=== PATIENT | male | born 1950 | race Two or more races ===

== ENCOUNTER 2016-09-08 18:16 | Inpatient (IN) | payer MEDICARE ==
[~2016-09-08] VITALS: Ht 167.6 cm; Wt 65.5 kg
[2016-09-08 20:04] LABS: HEMATOCRIT. 40.8 % (42.0-52.0); HEMOGLOBIN. 13.9 g/dL (14.0-18.0); MEAN CORPUSCULAR HEMOGLOBIN 30.7 pg (28.0-32.0); MEAN CORPUSCULAR VOLUME 90.3 fL (80.0-94.0); MEAN PLATELET VOLUME 9.8 fl (7.4-10.4); PLATELET 111 x1000/uL (130-400); RED BLOOD CELL COUNT 4.52 mill/uL (4.7-6.1); RED CELL DISTRIBUTION WIDTH 13.2 % (11.6-14.6)
[2016-09-08 20:13] LABS: CARBON DIOXIDE 21 mEq/L (21-32); CHLORIDE 90 mEq/L (98-107)
[2016-09-08] MEDS ORDERED: KETOROLAC 30MG/ML VIAL IV ONE (20:15)
[2016-09-08 20:16] LABS: TROPONIN I < 0.02 ng/mL (0.00-0.04)
[2016-09-08 20:17] LABS: D-DIMER 6.75 mg/L FEU (<0.50); INR 1.1; PROTHROMBIN TIME 11.3 sec
[2016-09-08] MEDS ORDERED: SODIUM CHLORIDE 0.9% 1,000 ML IV ONE ×2 (20:30→21:00)
[2016-09-08 20:35] LABS: CREATINE KINASE 413 IU/L (39-308)
[2016-09-08 20:39] LABS: PLATELET ESTIMATE DECREASED
[2016-09-08] MEDS ORDERED: MORPHINE SULFATE 4 MG/ML CPJ (NOT FOR IM USE) IV ONE (20:45)
[2016-09-08] MEDS ORDERED: ENOXAPARIN 80MG/0.8ML SYR SUBCUT ONE (20:45)
[2016-09-08] MEDS ORDERED: PIPERACILLIN/TAZOBACTAM 3.375GM/50ML PREMIX IV ONE (21:45)
[2016-09-08] MEDS ORDERED: VANCOMYCIN 1 G PREMIX 200 ML IV SCH (21:45)
[2016-09-08] MEDS ORDERED: PIPERACILLIN/TAZ 3.375G PREMIX 50 ML IV NR (21:47)
[2016-09-08] MEDS ORDERED: MORPHINE SULFATE 2 MG/ML CPJ (NOT FOR IM USE) IV ONE (23:15)
[2016-09-09] VITALS (12 sets, daily range): BP systolic 85–107; BP diastolic 55–77
[2016-09-09 00:55] LABS: CLARITY URINE TURBID (CLEAR); COLOR URINE YELLOW (YELLOW)
[2016-09-09 00:56] LABS: GLUCOSE URINE 3+ (NEGATIVE); PROTEIN URINE 2+ (NEGATIVE); SPECIFIC GRAVITY URINE 1.026 (1.005-1.030)
[2016-09-09 00:57] LABS: KETONES URINE NEGATIVE (NEGATIVE); LEUKOCYTE ESTERASE URINE NEGATIVE (NEGATIVE); NITRITE URINE NEGATIVE (NEGATIVE); OCCULT BLOOD URINE 3+ (NEGATIVE)
[2016-09-09] MEDS ORDERED: ACETAMINOPHEN 325MG TABLET PO PRN (03:30)
[2016-09-09] MEDS ORDERED: DOCUSATE SODIUM 100MG CAPSULE PO PRN (03:30)
[2016-09-09] MEDS ORDERED: IPRATROPIUM/ALBUTEROL 0.5-3(2.5)MG/3ML NEB INH PRN (03:30)
[2016-09-09] MEDS ORDERED: GUAIFENESIN 200MG/10ML SUGAR FREE UDC PO PRN (03:30)
[2016-09-09] MEDS ORDERED: LEVOFLOXACIN 500MG PREMIX 100 ML IV SCH ×2 (03:30→04:30)
[2016-09-09] MEDS ORDERED: LISI2.5T47 PO (03:42)
[2016-09-09] MEDS ORDERED: METF500T4 PO (03:42)
[2016-09-09] MEDS ORDERED: GLYB2.5T4 PO (03:42)
[2016-09-09] MEDS: SODIUM CHLORIDE 0.9% 1,000 ML IV SCH ×2 (04:15→18:00)
[2016-09-09] MEDS ORDERED: DEXTROSE 50% WATER 50ML SYRINGE IV PRN (05:00)
[2016-09-09] MEDS: HYDROCODONE/ACETAMINOPHEN 5/325MG TABLET PO PRN ×2 (05:07→23:46)
[2016-09-09] MEDS ORDERED: ENOXAPARIN 40MG/0.4ML SYR SUBCUT SCH (06:00)
[2016-09-09] MEDS ORDERED: PNEUMOCOCCAL 23-VAL P-SAC VAC 0.5 ML IM ONE (08:00)
[2016-09-09] MEDS: BLOOD SUGAR DIAGNOSTIC STRIP TEST SCH ×4 (08:20→20:53)
[2016-09-09] MEDS: ASPIRIN 81MG EC TABLET PO SCH (08:26)
[2016-09-09] MEDS: INSULIN LISPRO 100 UNITS/ML SUBCUT SCH ×4 (08:31→21:09)
[2016-09-09] MEDS ORDERED: METFORMIN HCL 500MG TABLET PO SCH (09:30)
[2016-09-09] MEDS: GLYBURIDE 2.5MG TABLET PO SCH (11:49)
[2016-09-09 12:56] LABS: HEMOGLOBIN. 12.7 g/dL (14.0-18.0); MEAN CORPUSCULAR HEMOGLOBIN 30.3 pg (28.0-32.0); MEAN CORPUSCULAR VOLUME 90.5 fL (80.0-94.0); MEAN PLATELET VOLUME 10.6 fl (7.4-10.4); PLATELET 105 x1000/uL (130-400); RED CELL DISTRIBUTION WIDTH 13.5 % (11.6-14.6)
[2016-09-09 13:57] LABS: PLATELET ESTIMATE DECREASED
[2016-09-09 16:05] LABS: HEPATITIS B SURFACE ANTIGEN NEGATIVE
[2016-09-09 16:33] LABS: HEPATITIS B CORE AB IGM NEGATIVE
[2016-09-09 16:35] LABS: HEPATITIS A AB IGM NEGATIVE (NEGATIVE)
[2016-09-09] MEDS: ONDANSETRON HCL 4MG/2ML VIAL IV PRN (19:02)
[2016-09-09] MEDS: ENOXAPARIN 30MG/0.3ML SYR SUBCUT SCH (21:15)
[2016-09-10] VITALS (12 sets, daily range): BP systolic 88–137; BP diastolic 53–77
[2016-09-10] MEDS ORDERED: LEVOFLOXACIN 250MG PREMIX 50 ML IV SCH (04:30)
[2016-09-10 07:13] LABS: HEMATOCRIT. 32.2 % (42.0-52.0); HEMOGLOBIN. 10.9 g/dL (14.0-18.0); MEAN CORPUSCULAR HEMOGLOBIN 30.5 pg (28.0-32.0); MEAN CORPUSCULAR VOLUME 90.4 fL (80.0-94.0); MEAN PLATELET VOLUME 10.6 fl (7.4-10.4); PLATELET 106 x1000/uL (130-400); RED BLOOD CELL COUNT 3.56 mill/uL (4.7-6.1); RED CELL DISTRIBUTION WIDTH 13.4 % (11.6-14.6)
[2016-09-10 07:44] LABS: CARBON DIOXIDE 18 mEq/L (21-32); CHLORIDE 93 mEq/L (98-107)
[2016-09-10] MEDS: ASPIRIN 81MG EC TABLET PO SCH (08:14)
[2016-09-10] MEDS: BLOOD SUGAR DIAGNOSTIC STRIP TEST SCH ×4 (08:14→20:58)
[2016-09-10] MEDS: GLYBURIDE 2.5MG TABLET PO SCH (08:18)
[2016-09-10] MEDS: SODIUM CHLORIDE 0.9% 1,000 ML IV SCH ×2 (08:20→22:01)
[2016-09-10] MEDS: INSULIN LISPRO 100 UNITS/ML SUBCUT SCH ×4 (08:35→20:59)
[2016-09-10] MEDS ORDERED: LISINOPRIL 2.5MG TABLET PO SCH (09:00)
[2016-09-10 09:21] LABS: PLATELET ESTIMATE DECREAS
[2016-09-10] MEDS: COLCHICINE 0.6MG TABLET PO SCH (12:53)
[2016-09-10] MEDS ORDERED: CEFTRIAXONE 2 G PREMIX 50 ML IV SCH (16:00)
[2016-09-10 16:52] LABS: CREATINE KINASE 448 IU/L (39-308)
[2016-09-10] MEDS: HYDROCODONE/ACETAMINOPHEN 5/325MG TABLET PO PRN (18:25)
[2016-09-10] MEDS: ENOXAPARIN 30MG/0.3ML SYR SUBCUT SCH (21:01)
[2016-09-11] VITALS (12 sets, daily range): BP systolic 122–156; BP diastolic 49–82
[2016-09-11] MEDS: SODIUM CHLORIDE 0.9% 1,000 ML IV SCH ×2 (05:04→12:12)
[2016-09-11] MEDS: HYDROCODONE/ACETAMINOPHEN 5/325MG TABLET PO PRN (05:11)
[2016-09-11] MEDS: INSULIN LISPRO 100 UNITS/ML SUBCUT SCH ×4 (08:00→21:00)
[2016-09-11] MEDS: BLOOD SUGAR DIAGNOSTIC STRIP TEST SCH ×4 (08:10→21:25)
[2016-09-11] MEDS: GLYBURIDE 2.5MG TABLET PO SCH (08:12)
[2016-09-11] MEDS: ASPIRIN 81MG EC TABLET PO SCH (08:12)
[2016-09-11] MEDS: SULFASALAZINE 500MG TABLET PO SCH ×2 (08:12→17:13)
[2016-09-11] MEDS: COLCHICINE 0.6MG TABLET PO SCH (08:12)
[2016-09-11] MEDS: ALLOPURINOL 100 MG TABLET PO SCH (08:12)
[2016-09-11 08:51] LABS: HEMATOCRIT. 30.3 % (42.0-52.0); HEMOGLOBIN. 10.1 g/dL (14.0-18.0); MEAN CORPUSCULAR HEMOGLOBIN 30.3 pg (28.0-32.0); MEAN CORPUSCULAR VOLUME 90.7 fL (80.0-94.0); MEAN PLATELET VOLUME 9.9 fl (7.4-10.4); PLATELET 113 x1000/uL (130-400); RED BLOOD CELL COUNT 3.34 mill/uL (4.7-6.1); RED CELL DISTRIBUTION WIDTH 13.9 % (11.6-14.6)
[2016-09-11 10:17] LABS: PLATELET ESTIMATE SLIGHTLY DECREASED
[2016-09-11] MEDS ORDERED: FUROSEMIDE 20MG/2ML VIAL IVP NR (12:45)
[2016-09-11] MEDS: SODIUM BICARBONATE 150 MEQ in DEXTROSE 5% WATER 1,000 ML IV SCH (17:13)
[2016-09-11] MEDS: CEFTRIAXONE 2 G in DEXTROSE 5% WATER 50 ML IV SCH (17:13)
[2016-09-11] MEDS: ENOXAPARIN 30MG/0.3ML SYR SUBCUT SCH (21:26)
[2016-09-12] VITALS (12 sets, daily range): BP systolic 122–152; BP diastolic 63–81
[2016-09-12 05:17] LABS: HEMATOCRIT. 29.9 % (42.0-52.0); HEMOGLOBIN. 10.1 g/dL (14.0-18.0); MEAN CORPUSCULAR HEMOGLOBIN 30.3 pg (28.0-32.0); MEAN CORPUSCULAR VOLUME 89.8 fL (80.0-94.0); MEAN PLATELET VOLUME 10.1 fl (7.4-10.4); PLATELET 116 x1000/uL (130-400); RED BLOOD CELL COUNT 3.33 mill/uL (4.7-6.1); RED CELL DISTRIBUTION WIDTH 14.2 % (11.6-14.6)
[2016-09-12] MEDS: HYDROCODONE/ACETAMINOPHEN 5/325MG TABLET PO PRN (05:49)
[2016-09-12 07:58] LABS: BG BASE EXCESS -3.2 mmol/L (-2.0-2.0); BG CARBOXYHEMOGLOBIN 0.2 % (0.5-1.5); BG DEOXYHEMOGLOBIN 6.4 % (0.0-5.0); BG FRACTION INSPIRED OXYGEN 21; BG HCO3 ACT 20.4 mmol/L (22.0-26.0); BG METHEMOGLOBIN 0.1 % (0.0-1.5); BG OXYGEN SATURATION 93.6 % (92.0-98.5); BG OXYHEMOGLOBIN 93.3 % (94.0-97.0); BG PCO2 31.5 mmHg (35.0-45.0); BG PH 7.429 (7.350-7.450); BG SAMPLE SITE RIGHT BRACHIAL; BG TOTAL HEMOGLOBIN 10.3 g/dL (12.0-18.0); BG VENT MODE ROOM AIR
[2016-09-12] MEDS: BLOOD SUGAR DIAGNOSTIC STRIP TEST SCH ×4 (08:16→21:02)
[2016-09-12] MEDS: GLYBURIDE 2.5MG TABLET PO SCH (08:20)
[2016-09-12] MEDS: ASPIRIN 81MG EC TABLET PO SCH (08:20)
[2016-09-12] MEDS: ALLOPURINOL 100 MG TABLET PO SCH (08:20)
[2016-09-12] MEDS: COLCHICINE 0.6MG TABLET PO SCH (08:20)
[2016-09-12] MEDS: SULFASALAZINE 500MG TABLET PO SCH ×2 (08:20→17:33)
[2016-09-12] MEDS: INSULIN LISPRO 100 UNITS/ML SUBCUT SCH ×4 (08:26→21:10)
[2016-09-12 09:28] LABS: PLATELET ESTIMATE SLIGHTLY DECREASED
[2016-09-12] MEDS: SODIUM BICARBONATE 150 MEQ in DEXTROSE 5% WATER 1,000 ML IV SCH (09:38)
[2016-09-12] MEDS: ONDANSETRON HCL 4MG/2ML VIAL IV PRN (15:38)
[2016-09-12] MEDS: CEFTRIAXONE 2 G in DEXTROSE 5% WATER 50 ML IV SCH (17:34)
[2016-09-12] MEDS: ENOXAPARIN 30MG/0.3ML SYR SUBCUT SCH (20:57)
[2016-09-13] VITALS (12 sets, daily range): BP systolic 126–175; BP diastolic 38–105
[2016-09-13] MEDS: SODIUM BICARBONATE 150 MEQ in DEXTROSE 5% WATER 1,000 ML IV SCH (00:11)
[2016-09-13] MEDS: HYDROCODONE/ACETAMINOPHEN 5/325MG TABLET PO PRN ×2 (00:20→13:24)
[2016-09-13 06:46] LABS: HEMATOCRIT. 30.6 % (42.0-52.0); HEMOGLOBIN. 10.5 g/dL (14.0-18.0); MEAN CORPUSCULAR HEMOGLOBIN 30.5 pg (28.0-32.0); MEAN CORPUSCULAR VOLUME 88.6 fL (80.0-94.0); MEAN PLATELET VOLUME 9.4 fl (7.4-10.4); PLATELET 136 x1000/uL (130-400); RED BLOOD CELL COUNT 3.45 mill/uL (4.7-6.1); RED CELL DISTRIBUTION WIDTH 13.9 % (11.6-14.6)
[2016-09-13 06:57] LABS: CARBON DIOXIDE 25 mEq/L (21-32); CHLORIDE 94 mEq/L (98-107)
[2016-09-13] MEDS: BLOOD SUGAR DIAGNOSTIC STRIP TEST SCH ×4 (08:09→20:51)
[2016-09-13] MEDS: COLCHICINE 0.6MG TABLET PO SCH (08:42)
[2016-09-13] MEDS: SULFASALAZINE 500MG TABLET PO SCH ×2 (08:42→17:35)
[2016-09-13] MEDS: GLYBURIDE 2.5MG TABLET PO SCH (08:42)
[2016-09-13] MEDS: ASPIRIN 81MG EC TABLET PO SCH (08:43)
[2016-09-13] MEDS: ALLOPURINOL 100 MG TABLET PO SCH (08:43)
[2016-09-13] MEDS: INSULIN LISPRO 100 UNITS/ML SUBCUT SCH ×4 (08:44→20:59)
[2016-09-13] MEDS: SODIUM CHLORIDE 0.9% 1,000 ML IV SCH ×2 (10:18→23:57)
[2016-09-13] MEDS: ONDANSETRON HCL 4MG/2ML VIAL IV PRN (11:28)
[2016-09-13 14:13] LABS: PLATELET ESTIMATE NORMAL
[2016-09-13] MEDS: CEFTRIAXONE 2 G in DEXTROSE 5% WATER 50 ML IV SCH (17:34)
[2016-09-13] MEDS: CLONIDINE 0.1MG TABLET PO PRN (20:13)
[2016-09-13] MEDS: ENOXAPARIN 30MG/0.3ML SYR SUBCUT SCH (21:01)
[2016-09-14] VITALS (8 sets, daily range): BP systolic 146–178; BP diastolic 74–91
[2016-09-14 06:38] LABS: HEMATOCRIT. 33.6 % (42.0-52.0); HEMOGLOBIN. 11.4 g/dL (14.0-18.0); MEAN CORPUSCULAR HEMOGLOBIN 30.1 pg (28.0-32.0); MEAN CORPUSCULAR VOLUME 89.1 fL (80.0-94.0); MEAN PLATELET VOLUME 9.5 fl (7.4-10.4); PLATELET 177 x1000/uL (130-400); RED BLOOD CELL COUNT 3.78 mill/uL (4.7-6.1)
[2016-09-14 07:47] LABS: PHOSPHORUS 5.5 mg/dL (2.5-4.9)
[2016-09-14] MEDS: INSULIN LISPRO 100 UNITS/ML SUBCUT SCH ×4 (08:00→21:18)
[2016-09-14] MEDS: SULFASALAZINE 500MG TABLET PO SCH ×2 (08:00→17:44)
[2016-09-14] MEDS: BLOOD SUGAR DIAGNOSTIC STRIP TEST SCH ×4 (08:08→21:00)
[2016-09-14] MEDS: COLCHICINE 0.6MG TABLET PO SCH (08:11)
[2016-09-14] MEDS: ASPIRIN 81MG EC TABLET PO SCH (08:11)
[2016-09-14] MEDS: GLYBURIDE 2.5MG TABLET PO SCH (08:11)
[2016-09-14] MEDS: HYDRALAZINE 20MG/ML VIAL IV PRN ×2 (08:18→18:39)
[2016-09-14] MEDS ORDERED: ALLOPURINOL 100 MG TABLET PO SCH (09:00)
[2016-09-14 09:07] LABS: IMMUNOGLOBULIN A 232 mg/dL (61-437); IMMUNOGLOBULIN G 726 mg/dL (700-1600); IMMUNOGLOBULIN M 46 mg/dL (20-172)
[2016-09-14 11:45] LABS: PLATELET ESTIMATE NORMAL
[2016-09-14] MEDS: SODIUM CHLORIDE 0.9% 1,000 ML IV SCH (11:50)
[2016-09-14 12:25] LABS: CREATININE URINE (RAW) 42.2 mg/dl
[2016-09-14] MEDS ORDERED: TETRACAINE/BENZOCAINE/BUTAMBEN 20 GM SPRAY MM ONE (13:24)
[2016-09-14] MEDS ORDERED: LIDOCAINE HCL 2% JELLY 5ML ONE (13:24)
[2016-09-14] MEDS ORDERED: FENTANYL CITRATE/PF 50MCG/ML 2ML VIAL ONE (13:25)
[2016-09-14] MEDS ORDERED: MIDAZOLAM HCL 2 MG/2 ML VIAL ONE ×2 (13:25→13:54)
[2016-09-14] MEDS: ALLOPURINOL 300 MG TABLET PO SCH (13:41)
[2016-09-14] MEDS: HYDROCODONE/ACETAMINOPHEN 5/325MG TABLET PO PRN (15:47)
[2016-09-14 17:07] LABS: ANTI-JO 1 ABS <0.2 AI (0.0-0.9)
[2016-09-14 17:07] LABS: ANTI-NUCLEAR ANTIBODIES DIRECT Negative (Negative)
[2016-09-14 17:07] LABS: ANTI-DNA DOUBLE STRANDED QUANT < 1 IU/mL (0-9); RNP ANTIBODY < 0.2 AI (0.0-0.9); SMITH ANTIBODY < 0.2 AI (0.0-0.9)
[2016-09-14] MEDS: CEFTRIAXONE 2 G in DEXTROSE 5% WATER 50 ML IV SCH (17:44)
[2016-09-14] MEDS: ENOXAPARIN 30MG/0.3ML SYR SUBCUT SCH (20:56)
[2016-09-15] VITALS (10 sets, daily range): BP systolic 146–171; BP diastolic 69–93
[2016-09-15] MEDS: SODIUM CHLORIDE 0.9% 1,000 ML IV SCH (01:47)
[2016-09-15] MEDS: HYDRALAZINE 20MG/ML VIAL IV PRN ×3 (06:11→21:50)
[2016-09-15 06:51] LABS: HEMATOCRIT. 33.6 % (42.0-52.0); HEMOGLOBIN. 11.2 g/dL (14.0-18.0); MEAN CORPUSCULAR HEMOGLOBIN 30.1 pg (28.0-32.0); MEAN PLATELET VOLUME 9.2 fl (7.4-10.4); PLATELET 217 x1000/uL (130-400); RED BLOOD CELL COUNT 3.73 mill/uL (4.7-6.1); RED CELL DISTRIBUTION WIDTH 14.1 % (11.6-14.6)
[2016-09-15 07:20] LABS: CARBON DIOXIDE 25 mEq/L (21-32); CHLORIDE 103 mEq/L (98-107)
[2016-09-15] MEDS: BLOOD SUGAR DIAGNOSTIC STRIP TEST SCH ×4 (07:30→21:54)
[2016-09-15] MEDS: SULFASALAZINE 500MG TABLET PO SCH ×2 (08:51→18:39)
[2016-09-15] MEDS: GLYBURIDE 2.5MG TABLET PO SCH (08:51)
[2016-09-15] MEDS: ALLOPURINOL 300 MG TABLET PO SCH (08:52)
[2016-09-15] MEDS: COLCHICINE 0.6MG TABLET PO SCH (08:52)
[2016-09-15] MEDS: ASPIRIN 81MG EC TABLET PO SCH (08:52)
[2016-09-15 09:07] LABS: A/G RATIO 0.3 (0.7-1.7); ALBUMIN 1.2 g/dL (2.9-4.4); ALPHA-1-GLOBULIN 0.6 g/dL (0.0-0.4); ALPHA-2-GLOBULIN 1.4 g/dL (0.4-1.0); BETA GLOBULIN 0.8 g/dL (0.7-1.3); GAMMA GLOBULINS 0.9 g/dL (0.4-1.8); GLOBULIN TOTAL 3.7 g/dL (2.2-3.9); M-SPIKE Not Observed g/dL (Not Observed); TOTAL PROTEIN SERUM 4.9 g/dL (6.0-8.5)
[2016-09-15 09:07] LABS: ANGIOTENSION CONVERTING ENZYME < 15 U/L (14-82)
[2016-09-15] MEDS: INSULIN LISPRO 100 UNITS/ML SUBCUT SCH ×4 (09:09→21:48)
[2016-09-15 10:26] LABS: PLATELET ESTIMATE NORMAL
[2016-09-15] MEDS: CLONIDINE 0.1MG TABLET PO PRN (12:53)
[2016-09-15 13:07] LABS: ANTI-MYELOPEROXIDASE AB < 9.0 U/mL (0.0-9.0); ANTI-PROTEINASE 3 ABS < 3.5 U/mL (0.0-3.5)
[2016-09-15 15:12] LABS: ATYPICAL P-ANCA <1:20 titer (Neg:<1:20); CYTOPLASMIC C-ANCA <1:20 titer (Neg:<1:20); PERINUCLEAR P-ANCA <1:20 titer (Neg:<1:20)
[2016-09-15] MEDS: CEFTRIAXONE 2 G in DEXTROSE 5% WATER 50 ML IV SCH (18:39)
[2016-09-15] MEDS: ENOXAPARIN 30MG/0.3ML SYR SUBCUT SCH (21:48)
[2016-09-16] VITALS (11 sets, daily range): BP systolic 148–195; BP diastolic 74–98
[2016-09-16 06:37] LABS: BASOPHILS % 0.6 % (0.0-2.0); EOSINOPHILS % 0.8 % (0.0-5.0); HEMATOCRIT. 31.6 % (42.0-52.0); HEMOGLOBIN. 10.3 g/dL (14.0-18.0); LYMPHOCYTES % 9.8 % (20.0-50.0); MEAN CORPUSCULAR HEMOGLOBIN 29.6 pg (28.0-32.0); MEAN CORPUSCULAR VOLUME 90.5 fL (80.0-94.0); NEUTROPHILS % 83.8 % (40.0-76.0); RED BLOOD CELL COUNT 3.49 mill/uL (4.7-6.1); RED CELL DISTRIBUTION WIDTH 14.3 % (11.6-14.6)
[2016-09-16] MEDS: BLOOD SUGAR DIAGNOSTIC STRIP TEST SCH ×2 (08:23→12:39)
[2016-09-16] MEDS: INSULIN LISPRO 100 UNITS/ML SUBCUT SCH ×2 (08:34→13:26)
[2016-09-16] MEDS: ASPIRIN 81MG EC TABLET PO SCH (08:35)
[2016-09-16] MEDS: SULFASALAZINE 500MG TABLET PO SCH (08:35)
[2016-09-16] MEDS: COLCHICINE 0.6MG TABLET PO SCH (08:36)
[2016-09-16] MEDS: GLYBURIDE 2.5MG TABLET PO SCH (08:36)
[2016-09-16 08:39] LABS: MEAN PLATELET VOLUME 9.6 fl (7.4-10.4); PLATELET 236 x1000/uL (130-400)
[2016-09-16] MEDS: HYDROCODONE/ACETAMINOPHEN 5/325MG TABLET PO PRN (08:43)
[2016-09-16] MEDS ORDERED: AMLODIPINE 5MG TABLET PO SCH (09:00)
[2016-09-16] MEDS ORDERED: ALLOPURINOL 100 MG TABLET PO SCH (09:00)
[2016-09-16] MEDS: CLONIDINE 0.1MG TABLET PO PRN (11:04)
[2016-09-16] MEDS ORDERED: HYDRALAZINE HCL 10MG TABLET PO SCH (14:00)
[2016-09-16 17:12] LABS: HLA CLASS 1 ANTIBODY Negative (Negative); IIb/IIIa ANTIBODY Negative (Negative); Ia/IIa ANTIBODY Negative (Negative); Ib/IX ANTIBODY Negative (Negative)
[2016-09-17 13:09] LABS: COMPLEMENT C3 95 mg/dL (82-167)
[2016-09-20 14:16] LABS: HLA B27 DISEASE ASSOCIATION Negative (.)
== END 2016-09-16 14:35 | DRG 871 ==
LOC: ER 20:34 → 5EST 22:57 → ENRESERV 09-09 01:26
PROVIDERS: ADMIT Hospitalist; ATTEND Hospitalist
DX: A40.9 Streptococcal sepsis, unspecified (principal); E43 Unspecified severe protein-calorie malnutrition; N17.0 Acute kidney failure with tubular necrosis; J18.1 Lobar pneumonia, unspecified organism; E87.1 Hypo-osmolality and hyponatremia; I38 Endocarditis, valve unspecified; J44.0 Chronic obstructive pulmonary disease with (acute) lower respiratory infection; M02.30 Reiter's disease, unspecified site; R65.20 Severe sepsis without septic shock; D64.9 Anemia, unspecified; D69.6 Thrombocytopenia, unspecified; E11.22 Type 2 diabetes mellitus with diabetic chronic kidney disease; E11.40 Type 2 diabetes mellitus with diabetic neuropathy, unspecified; E11.65 Type 2 diabetes mellitus with hyperglycemia; E78.00 Pure hypercholesterolemia, unspecified; E86.0 Dehydration; F17.210 Nicotine dependence, cigarettes, uncomplicated; I13.10 Hypertensive heart and chronic kidney disease without heart failure, with stage 1 through stage 4 chronic kidney disease, or unspecified chronic kidney disease; I27.2 Other secondary pulmonary hypertension; I34.0 Nonrheumatic mitral (valve) insufficiency; I45.10 Unspecified right bundle-branch block; K52.9 Noninfective gastroenteritis and colitis, unspecified; M06.9 Rheumatoid arthritis, unspecified; N18.9 Chronic kidney disease, unspecified; E79.0 Hyperuricemia without signs of inflammatory arthritis and tophaceous disease; I95.9 Hypotension, unspecified; R74.0 Nonspecific elevation of levels of transaminase and lactic acid dehydrogenase [LDH]; Z79.84 Long term (current) use of oral hypoglycemic drugs; Z79.899 Other long term (current) drug therapy; Z82.49 Family history of ischemic heart disease and other diseases of the circulatory system; Z83.3 Family history of diabetes mellitus; Z68.23 Body mass index [BMI] 23.0-23.9, adult
CPT/HCPCS: 36415; 36600; 70450; 71010; 73030; 76770; 78580; 80048; 80053; 80076; 81001; 82085; 82164; 82375; 82533; 82550; 82575; 82784; 82805; 82962; 83036; 83516; 83520; 83605; 83735; 83880; 83930; 84100; 84155; 84165; 84443; 84484; 84550; 85025; 85379; 85610; 85651; 86022; 86038; 86060; 86140; 86160; 86225; 86235; 86256; 86334; 86431; 86705; 86709; 86803; 87040; 87077; 87086; 87186; 87340; 90732; 93005; 93306; 93312; 93970; 96365; 96366; 96368; 96375; 96376; 97530; 99291; J0360; J0696; J1650; J1815; J1885; J1940; J1956; J2250; J2270; J2405; J2543; J3010; J3370; J3490; J7030; J7060; J7070; A4315